=== PATIENT | male | born 1965 | race Caucasian/White ===

== ENCOUNTER → 2018-07-29 14:19 | Outpatient (CLI) | payer OTHER ==
--- NOTE | ~2018-07-29 | ST ---
PATIENT:HERB LAZCANO MEDICAL RECORD: [id number] SEX: M LOCATION:[facility] ORDER #: ADMISSION DATE: 07/29/18 AGE OF PATIENT: 52 REFERRING PHYSICIAN: INTERPRETING PHYSICIAN: MIGUEL TRIPP MD DATE OF SERVICE: 07/29/2018 Baseline ECG is normal. He exercised for 6 minutes on Ildefonso protocol. Maximum heart rate 160 beats per minute, 95% of max predicted. No ECG changes of ischemia. No symptoms of ischemia. Normal blood pressure response to exercise. No arrhythmias noted. Poor exercise tolerance for age. TRANSINT:[id number] Voice Confirmation ID: [id number] DOCUMENT ID: [id number] MIGUEL TRIPP MD CC: [id number] DICTATION DATE: 08/07/18 1456 STATISTICAL TECHNICIAN: 08/07/18 1551 [facility] CLI 07/29/18 [id number] [place] [address]
== END | disposition home or self-care (01) ==
LOC: D.HCCARDIO 14:19
PROVIDERS: ATTEND Internal Medicine Interventional Cardiology
DX: I20.9 Angina pectoris, unspecified (principal); I10 Essential (primary) hypertension